=== PATIENT | male | born 1965 | race Caucasian/White ===

== ENCOUNTER 2016-09-07 09:25 | Emergency (ER) | payer OTHER ==
[2016-09-07] MEDS ORDERED: HYDROCODONE/APAP 5/325MG TABLET PO ONE (10:03)
--- NOTE | 2016-09-07 10:09 | Emergency Department Record ---
History of Present Illness - General Chief complaint: Lower Extremity Pain Stated complaint: GOUT LEFT FOOT Time Seen by Provider: 09/07/16 09:48 Source: Patient Mode of Arrival: Ambulatory Limitations: No limitations - History of Present Illness Initial comments: The patient has a long hx of gout and now is having a gout attack. He has been having pain in his L big toe, and L knee for a week. It feels exactly like his gout attacks in the past. He also has been having L lower back pain for one day. The pain is sharp and stabbing and worse with certain movements. There is no leg numbness, weakness, tingling or any bowel or bladder issues. He denies any trauma or injury. MD Complaint: Extremity pain Onset/Timin -: Week(s) Location: Left, Foot, Knee History of Same: Yes Severity scale (1-10): 8 Quality: Sharp, Stabbing Improves with: Nothing Associated Symptoms: Denies other symptoms - Related Data Home Medications Medication Instructions Recorded Confirmed Last Taken Allopurinol [Zyloprim] 100 mg PO DAILY 09/07/16 09/07/16 09/06/16 Previous Rx's Medication Instructions Recorded Hydrocodone/Acetaminophen [Evergreen 1 each PO QID #12 tablet 09/07/16 7.5-325 Tablet] Prednisone [Prednisone 20Mg] 40 mg PO DAILY #10 tab 09/07/16 Allergies Allergy/AdvReac Type Severity Reaction Status Date / Time NO KNOWN DRUG ALLERGY Allergy PT UNSURE Uncoded 02/29/16 13:35 OF REACTION Travel Screening - Travel/Exposure Within Last 30 Days Have you traveled within the last 30 days?: No - Travel/Exposure Within Last Year Have you traveled outside the [place] in the last year?: No - Additonal Travel Details Have you been exposed to anyone with a communicable illness?: No Review of Systems Constitutional: Denies: Chills, Fever Eyes: Denies: Eye discharge ENT: Denies: Congestion Respiratory: Denies: Cough, Dyspnea Past Medical History - SOCIAL HISTORY Smoking Status: Never smoker Alcohol Use: None Drug Use: None - RESPIRATORY Hx Respiratory Disorders: No - CARDIOVASCULAR Hx Cardio Disorders: No - NEURO Hx Neuro Disorders: No - GI Hx GI Disorders: No - Hx Genitourinary Disorders: No - ENDOCRINE Hx Endocrine Disorders: No - MUSCULOSKELETAL Hx Musculoskeletal Disorders: Yes Hx Gout: Yes - PSYCH Hx Psych Problems: No - HEMATOLOGY/ONCOLOGY Hx Hematology/Oncology Disorders: No Family Medical History Any Significant Family History?: No Physical Exam - General General Appearance: Alert, Oriented x3, Cooperative, No acute distress - Head Head exam: Atraumatic, Normocephalic, Normal inspection - Eye Eye exam: Normal appearance, PERRL - Neck Neck exam: Normal inspection, Full ROM. negative: Tenderness - Respiratory Respiratory exam: Normal lung sounds bilaterally. negative: Respiratory distress - Cardiovascular Cardiovascular Exam: Regular rate, Normal rhythm, Normal heart sounds - GI/Abdominal GI/Abdominal exam: Soft, Normal bowel sounds. negative: Tenderness - Extremities Extremities exam: Normal inspection, Full ROM, Tenderness (There is mild tenderness to the L 1st MTP joint and L knee. There is no overlying erythema, edema, or any joint effusions.) - Back Back exam: Reports: Normal inspection, Muscle spasm, Paraspinal tenderness ( there is tenderness to the L L3-5 paraspinal area.). Denies: Vertebral tenderness - Neurological Neurological exam: Alert, Normal gait, Oriented X3, Reflexes normal, Other (Neg SLR bilaterally.). negative: Abnormal gait, Altered, Motor sensory deficit Course Vital Signs 09/07/16 09:29 Temperature 97.7 F Pulse Rate 66 Respiratory 16 Rate Blood Pressure 177/106 Pulse Ox 97 - Reevaluation(s) Reevaluation #1: I did explain to the patient that we will provide him with pain relief and a short course of oral steroids. I did offer a steroid shot to the patient but he declined. 09/07/16 10:07 Disposition Disposition: Discharge Clinical Impression: Gout attack Qualifiers: Gout site: multiple sites Gout etiology: unspecified cause Qualified Code(s): M10.9 - Gout, unspecified Disposition: Home, Self-Care Condition: (1) Good Instructions: Acute Gouty Arthritis (ED) Additional Instructions: Please use your home NSAIDS for pain along with the Prednisone and Evergreen. Please see your PCP if not better in 3-5 days. Return to the ER if worse. Prescriptions: Hydrocodone/Acetaminophen [Evergreen 7.5-325 Tablet] 1 each PO QID #12 tablet Prednisone [Prednisone 20Mg] 40 mg PO DAILY #10 tab Forms: Patient Portal Access Time of Disposition: 10:09
== END 2016-09-07 10:15 | disposition home or self-care (01) ==
LOC: ER 09:25
DX: M10.9 Gout, unspecified (principal)
CPT/HCPCS: 99282